=== PATIENT | male | born 1985 | race Two or more races ===

== ENCOUNTER 2018-09-01 21:46 | Emergency (ER) | payer SELFPAY ==
[~2018-09-01] VITALS: Ht 154.9 cm; Wt 77.1 kg
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
[2018-09-01 21:53] VITALS: BP 135/91
[2018-09-01] MEDS ORDERED: Methocarbamol 750mg tab ORAL ONE (22:15)
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
[2018-09-01] MEDS ORDERED: IBUPROFEN600 MG ORAL (23:54)
[2018-09-01] MEDS ORDERED: ROBAXIN-750750 MG PO (23:54)
[2018-09-02 00:01] VITALS: BP 131/72
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
== END 2018-09-02 00:01 | disposition home or self-care (01) ==
LOC: EDBD 21:46 → EMR 22:03
DX: S01.531A Puncture wound without foreign body of lip, initial encounter (principal); S00.531A Contusion of lip, initial encounter; Y04.0XXA Assault by unarmed brawl or fight, initial encounter; Y92.512 Supermarket, store or market as the place of occurrence of the external cause; R07.9 Chest pain, unspecified; M54.5 Low back pain; M54.6 Pain in thoracic spine; M25.551 Pain in right hip
CPT/HCPCS: 71045; 72020; 72070; 99284